=== PATIENT | female | born 1940 | race Caucasian/White ===

== ENCOUNTER → 2016-07-11 | Outpatient (CLI) | payer MEDICARE ==
[~2016-07-11] MED LIST: ASCO-96 PO; ASPI-614; ASPI-621 PO; ATEN50TA41; ATEN50TA41 PO; ATOR40TA; ATOR40TA78 PO; BIOF1TAB6 PO; CARB100T4 PO; CARB400T4; CARB400T4 PO; CHOL5000 PO; DIPH25CA61 PO; FOCUS FACTOR PO; GLUC1TAB9 PO; HYDR1POW19; HYDR1POW19 PO; HYDR25TA6 PO; KONSYL PO; LIPO FLAVONOID PLUS PO; LISI-170; LISI-467 PO; MAGN300C PO; MECL-76; MECL-76 PO; MECL25TA4 PO; MELA3TAB37 PO; META800T; META800T PO; NAPR500T PO; NAPR500T8; NITR0.4T; NITR0.4T PO; OMEG1CAP12 PO; OMEP-110; OMEP-110 PO; PREG100C PO; PREG75CA; PREG75CA PO; VIT1TABL32 PO; VIT1TABL46 PO; VITA400C14 PO; ZOLP10TA3; ZOLP10TA5 PO; [UNRECOGNIZED DRUG - OTHER] PO
== END | disposition home or self-care (01) ==
LOC: CFH 08:14
PROVIDERS: ATTEND Family Medicine
DX: G31.89 Other specified degenerative diseases of nervous system (principal)
CPT/HCPCS: 70450

== ENCOUNTER → 2016-07-22 | Outpatient (CLI) | payer MEDICARE | END | disposition home or self-care (01) | LOC: CARD 09:23 | PROVIDERS: ATTEND Family Medicine | DX: R55 Syncope and collapse (principal) | CPT/HCPCS: 93225; 93226 ==

== ENCOUNTER → 2016-11-27 | Outpatient (CLI) | payer MEDICARE ==
[~2016-11-27] MED LIST changes: -OMEG1CAP12 PO; +OMEG1CAP23 PO
[2016-11-27 12:56] LABS: BLOOD UREA NITROGEN 12 mg/dL (7-18)
[2016-11-27 12:59] LABS: ASPARTATE AMINO TRANSFERASE 22 U/L (15-37)
== END | disposition home or self-care (01) ==
LOC: CFH 08:21
PROVIDERS: ATTEND Internal Medicine Cardiovascular Disease
DX: I11.9 Hypertensive heart disease without heart failure (principal); I25.10 Atherosclerotic heart disease of native coronary artery without angina pectoris
CPT/HCPCS: 36415; 80053; 80061; 85027

== ENCOUNTER → 2017-06-16 | Outpatient (CLI) | payer MEDICARE ==
[~2017-06-16] MED LIST changes: -MELA3TAB37 PO; +MELA3TAB62 PO; +NAPR-856 PO; -NAPR500T PO
[2017-06-16 15:46] LABS: ANION GAP 9 mmol/L (5-15); CALCIUM 8.6 mg/dL (8.5-10.1); CHLORIDE 101 mmol/L (98-107)
[2017-06-16 16:12] LABS: C-REACTIVE PROTEIN, QUANT 0.03 mg/dL (0.02-0.49)
== END | disposition home or self-care (01) ==
LOC: CFH 10:36
PROVIDERS: ATTEND Psychiatry & Neurology Child & Adolescent Psychiatry
DX: G50.0 Trigeminal neuralgia (principal); M54.81 Occipital neuralgia; M31.6 Other giant cell arteritis; R41.89 Other symptoms and signs involving cognitive functions and awareness; E56.9 Vitamin deficiency, unspecified; Z79.899 Other long term (current) drug therapy
CPT/HCPCS: 36415; 80048; 82306; 82607; 84207; 84432; 85651; 86038; 86140; 86147; 86235; 86256; 86430; 86800

== ENCOUNTER → 2018-07-21 | Outpatient (CLI) | payer MEDICARE ==
[~2018-07-21] MED LIST changes: -ASPI-621 PO; +ASPI81TA45 PO
[2018-07-21 13:17] LABS: ALANINE AMINOTRANSFERASE 23 U/L (12-78); ALBUMIN 4.2 g/dL (3.4-5.0); ANION GAP 6 mmol/L (5-15); CALCIUM 8.9 mg/dL (8.5-10.1); CHLORIDE 106 mmol/L (98-107); CREATININE 0.74 mg/dL (0.55-1.02)
[2018-07-21 13:19] LABS: ALKALINE PHOSPHATASE 103 U/L (45-117); BILIRUBIN,TOTAL 1.1 mg/dL (0.2-1.0); TOTAL PROTEIN 7.2 g/dL (6.4-8.2)
== END | disposition home or self-care (01) ==
LOC: CFH 08:26
PROVIDERS: ATTEND Internal Medicine Cardiovascular Disease
DX: E78.00 Pure hypercholesterolemia, unspecified (principal); I25.10 Atherosclerotic heart disease of native coronary artery without angina pectoris; I65.23 Occlusion and stenosis of bilateral carotid arteries
CPT/HCPCS: 36415; 80053

== ENCOUNTER → 2018-07-30 | Outpatient (CLI) | payer MEDICARE ==
[2018-07-30 12:55] LABS: CHLORIDE 108 mmol/L (98-107)
[2018-07-30 13:10] LABS: ALANINE AMINOTRANSFERASE 31 U/L (12-78); ALBUMIN 4.1 g/dL (3.4-5.0); ALKALINE PHOSPHATASE 92 U/L (45-117); CALCIUM 8.9 mg/dL (8.5-10.1); CHOL/HDL RATIO 1.9; CHOLESTEROL, TOTAL 157 mg/dL (140-239); CREATININE 0.63 mg/dL (0.55-1.02); HDL CHOL % 54 % (28-40); HDL CHOLESTEROL (DIRECT) 84 mg/dL (40-60); LDL CHOLESTEROL,CALCULATED 58 mg/dL (54-169); LDL/HDL RATIO 0.7 (0.5-3.0); TOTAL PROTEIN 6.9 g/dL (6.4-8.2); TRIGLYCERIDES 77 mg/dL (50-200); VLDL CHOLESTEROL 15 mg/dL (0-25)
[2018-07-30 13:14] LABS: ANION GAP 6 mmol/L (5-15)
== END | disposition home or self-care (01) ==
LOC: CFH 08:02
PROVIDERS: ATTEND Family Medicine
DX: I25.708 Atherosclerosis of coronary artery bypass graft(s), unspecified, with other forms of angina pectoris (principal); I10 Essential (primary) hypertension
CPT/HCPCS: 36415; 80053; 80061

== ENCOUNTER → 2018-08-03 | Outpatient (CLI) | payer MEDICARE ==
[2018-08-03 15:14] LABS: HCT (SEDRATE) 38.9 % (34.6-47.8)
[2018-08-03 15:20] LABS: BASOPHILS # (AUTO) 0.02 x10^3/uL (0-0.1); BASOPHILS % (AUTO) 1 % (0-1); EOSINOPHILS # (AUTO) 0.15 x10^3/uL (0-0.4); EOSINOPHILS % (AUTO) 3 % (1-7); LYMPHOCYTES # (AUTO) 0.82 x10^3/uL (1-3.4); LYMPHOCYTES % (AUTO) 18 % (22-44); MD NO; MEAN CORPUSCULAR HEMOGLOBIN 32.7 pg (27.0-34.8); MEAN CORPUSCULAR HGB CONC 33.7 g/dL (32.4-35.8); MEAN PLATELET VOLUME 7.9 fL (7.4-10.4); MONOCYTES # (AUTO) 0.35 x10^3/uL (0.2-0.8); MONOCYTES % (AUTO) 8 % (2-9); NEUTROPHILS # (AUTO) 3.17 x10^3/uL (1.8-6.8); NEUTROPHILS % (AUTO) 70 % (42-75); PLATELET COUNT 215 x10^3/uL (130-400); RED BLOOD COUNT 4.08 x10^6/uL (3.82-5.3); RED CELL DISTRIBUTION WIDTH 13.1 % (9.6-15.2)
[2018-08-03 15:31] LABS: T4 (THYROXINE) 9.4 mcg/dL (4.8-13.9); THYROID STIMULATING HORMONE 1.25 mIU/L (0.358-3.740)
== END | disposition home or self-care (01) ==
LOC: CFH 08:02
PROVIDERS: ATTEND Psychiatry & Neurology Neurology
DX: M50.323 Other cervical disc degeneration at C6-C7 level (principal); H81.10 Benign paroxysmal vertigo, unspecified ear; R53.81 Other malaise
CPT/HCPCS: 36415; 70260; 72052; 84436; 84443; 84480; 84481; 85025; 85651; 86592

== ENCOUNTER 2018-11-27 16:28 | Inpatient (IN) | payer MEDICARE ==
[~2018-11-27] VITALS: Ht 160 cm; Wt 60.8 kg
[2018-12-01 12:01] VITALS: BP 150/74
== END 2018-12-01 12:50 | disposition home or self-care (01) | DRG 287 ==
LOC: ED 17:11 → OBSVTOIN 17:51 → EDIP 17:51 → INTOOBSV 17:51 → 5SO 18:17 → DCLOUNGE 12-01 12:15
PROVIDERS: ADMIT Internal Medicine; ATTEND Internal Medicine
PROC: 4A023N7 Measurement of Cardiac Sampling and Pressure, Left Heart, Percutaneous Approach (ICD-10-PCS; principal; 2018-11-30)
PROC: B2111ZZ Fluoroscopy of Multiple Coronary Arteries using Low Osmolar Contrast (ICD-10-PCS; 2018-11-30)
PROC: B2181ZZ Fluoroscopy of Left Internal Mammary Bypass Graft using Low Osmolar Contrast (ICD-10-PCS; 2018-11-30)
PROC: B2151ZZ Fluoroscopy of Left Heart using Low Osmolar Contrast (ICD-10-PCS; 2018-11-30)
PROC: B2171ZZ Fluoroscopy of Right Internal Mammary Bypass Graft using Low Osmolar Contrast (ICD-10-PCS; 2018-11-30)
PROC: B31P1ZZ Fluoroscopy of Thoraco-Abdominal Aorta using Low Osmolar Contrast (ICD-10-PCS; 2018-11-30)
PROC: B41F1ZZ Fluoroscopy of Right Lower Extremity Arteries using Low Osmolar Contrast (ICD-10-PCS; 2018-11-30)
PROC: B2131ZZ Fluoroscopy of Multiple Coronary Artery Bypass Grafts using Low Osmolar Contrast (ICD-10-PCS; 2018-11-30)
DX: I25.10 Atherosclerotic heart disease of native coronary artery without angina pectoris (principal); R07.89 Other chest pain; I08.0 Rheumatic disorders of both mitral and aortic valves; I11.9 Hypertensive heart disease without heart failure; M54.81 Occipital neuralgia; I25.82 Chronic total occlusion of coronary artery; G47.00 Insomnia, unspecified; F41.1 Generalized anxiety disorder; E78.5 Hyperlipidemia, unspecified; R73.01 Impaired fasting glucose; I73.9 Peripheral vascular disease, unspecified; Z91.013 Allergy to seafood; Z95.5 Presence of coronary angioplasty implant and graft; Z95.1 Presence of aortocoronary bypass graft; Z90.710 Acquired absence of both cervix and uterus; Z87.891 Personal history of nicotine dependence; Z82.49 Family history of ischemic heart disease and other diseases of the circulatory system
CPT/HCPCS: 36415; 71045; 78452; 80048; 80061; 82040; 83735; 83880; 84443; 84484; 85025; 93005; 93017; 93459; 93978; 99156; 99157; 99285; C1760; C1769; C1894; G0378; J0583; J1644; J2250; J2785; J3010; A9502; J0360; J1200; J2930; J7030; Q0163; Q9967

== ENCOUNTER 2018-12-02 14:48 | Emergency (ER) | payer MEDICARE ==
[~2018-12-02] VITALS: Ht 160 cm; Wt 59.8 kg
[2018-12-02 18:11] VITALS: BP 112/47
== END 2018-12-02 18:14 | disposition home or self-care (01) ==
LOC: ED 16:12
DX: I95.9 Hypotension, unspecified (principal); R07.9 Chest pain, unspecified; R42 Dizziness and giddiness; I10 Essential (primary) hypertension; I25.10 Atherosclerotic heart disease of native coronary artery without angina pectoris
CPT/HCPCS: 36415; 80053; 85025; 93005; 99284

== ENCOUNTER 2019-01-04 08:21 | Outpatient (CLI) | payer MEDICARE ==
[~2019-01-04 08:21] MED LIST changes: +ACID1TAB7 PO; +CARV12.5 PO; +ISOS30TA21 PO; -NITR0.4T; -NITR0.4T PO; +NITR0.4T41; +NITR0.4T41 PO; +TIZA4TAB2 PO; +TRAM50TA2 PO
[2019-01-04] MEDS ORDERED: CBD PO (09:12)
[2019-01-04] MEDS ORDERED: BIOT25005 PO (09:12)
[2019-01-04] MEDS ORDERED: GLUC1TAB21 PO (09:12)
[2019-01-04] MEDS ORDERED: POTA99TA8 PO (09:12)
[2019-01-04] MEDS ORDERED: AMLO2.5T5 PO (09:12)
[2019-01-04] MEDS ORDERED: TRAZ50TA66 PO (09:12)
[2019-01-04] MEDS ORDERED: CYAN50TA PO (09:12)
[2019-01-04] MEDS ORDERED: MULT-738 PO (09:12)
== END 2019-01-04 23:59 | disposition home or self-care (01) ==
LOC: CVU 08:21
PROVIDERS: ATTEND Nurse Practitioner Family
DX: I65.23 Occlusion and stenosis of bilateral carotid arteries (principal)
CPT/HCPCS: 93880

== ENCOUNTER → 2019-04-04 | Outpatient (CLI) | payer MEDICARE ==
[~2019-04-04] MED LIST changes: +AMLO2.5T5 PO; +BIOT25005 PO; +CBD PO; +CYAN50TA PO; +GLUC1TAB21 PO; +MULT-738 PO; +POTA99TA8 PO; +TRAZ50TA66 PO
[2019-04-04 12:53] LABS: BASOPHILS # (AUTO) 0.02 x10^3/uL (0-0.1); BASOPHILS % (AUTO) 0 % (0-1); EOSINOPHILS # (AUTO) 0.08 x10^3/uL (0-0.4); EOSINOPHILS % (AUTO) 2 % (1-7); LYMPHOCYTES % (AUTO) 24 % (22-44); MD NO; MEAN CORPUSCULAR HGB CONC 32.9 g/dL (32.4-35.8); MEAN CORPUSCULAR VOLUME 97.3 fL (80-100); MEAN PLATELET VOLUME 8.1 fL (7.4-10.4); MONOCYTES # (AUTO) 0.42 x10^3/uL (0.2-0.8); MONOCYTES % (AUTO) 9 % (2-9); NEUTROPHILS # (AUTO) 2.94 x10^3/uL (1.8-6.8); NEUTROPHILS % (AUTO) 65 % (42-75); PLATELET COUNT 213 x10^3/uL (130-400); RED BLOOD COUNT 4.05 x10^6/uL (3.82-5.3); RED CELL DISTRIBUTION WIDTH 12.5 % (9.6-15.2)
[2019-04-04 13:02] LABS: MICROSCOPIC AUTO
[2019-04-04 13:05] LABS: CULTURE INDICATED? NO
[2019-04-04 13:14] LABS: CHLORIDE 108 mmol/L (98-107)
[2019-04-04 13:22] LABS: ALANINE AMINOTRANSFERASE 37 U/L (12-78); ALBUMIN 3.7 g/dL (3.4-5.0); ALKALINE PHOSPHATASE 108 U/L (45-117); ANION GAP 5 mmol/L (5-15); BILIRUBIN,TOTAL 1.3 mg/dL (0.2-1.0); CALCIUM 8.7 mg/dL (8.5-10.1); CREATININE 0.66 mg/dL (0.55-1.02); TOTAL PROTEIN 6.9 g/dL (6.4-8.2)
== END | disposition home or self-care (01) ==
LOC: CFH 08:00
PROVIDERS: ATTEND Family Medicine
DX: K29.00 Acute gastritis without bleeding (principal)
CPT/HCPCS: 36415; 80053; 81001; 82150; 83690; 85025; 87338

== ENCOUNTER 2019-05-27 07:53 | Outpatient (CLI) | payer MEDICARE ==
[~2019-05-27 07:53] MED LIST changes: +MECL-101 PO; -MECL25TA4 PO
[2019-05-27 13:12] LABS: CREATININE 0.74 mg/dL (0.55-1.02)
== END 2019-05-27 23:59 | disposition home or self-care (01) ==
LOC: CFH 07:53
PROVIDERS: ATTEND Internal Medicine Gastroenterology
DX: I10 Essential (primary) hypertension (principal); I73.9 Peripheral vascular disease, unspecified; I25.10 Atherosclerotic heart disease of native coronary artery without angina pectoris; R55 Syncope and collapse
CPT/HCPCS: 36415; 82565; 84520

== ENCOUNTER → 2019-05-30 | Outpatient (CLI) | payer MEDICARE | END | disposition home or self-care (01) | LOC: CVU 07:22 | PROVIDERS: ATTEND Surgery | DX: I70.8 Atherosclerosis of other arteries (principal); I77.1 Stricture of artery; I10 Essential (primary) hypertension; E78.5 Hyperlipidemia, unspecified | CPT/HCPCS: 93922; 93925 ==

== ENCOUNTER → 2019-06-06 | Outpatient (CLI) | payer MEDICARE ==
[~2019-06-06] MED LIST changes: +OMNIPAQUE 350 MG/ML, 100ML BOTTLE ONE
== END | disposition home or self-care (01) ==
LOC: CFH 08:48
PROVIDERS: ATTEND Internal Medicine Gastroenterology
DX: R10.13 Epigastric pain (principal); I25.10 Atherosclerotic heart disease of native coronary artery without angina pectoris; I73.9 Peripheral vascular disease, unspecified; I10 Essential (primary) hypertension; R55 Syncope and collapse
CPT/HCPCS: 74170; Q9967

== ENCOUNTER → 2019-09-29 | Outpatient (CLI) | payer MEDICARE ==
[~2019-09-29] MED LIST changes: -OMNIPAQUE 350 MG/ML, 100ML BOTTLE ONE; +REGADENOSON 0.4 MG/5 ML SYRINGE ONE
== END | disposition home or self-care (01) ==
LOC: CFH 11:59
PROVIDERS: ATTEND Internal Medicine Cardiovascular Disease
DX: R55 Syncope and collapse (principal); R07.9 Chest pain, unspecified; I10 Essential (primary) hypertension
CPT/HCPCS: 78452; 93017; A9502; J2785

== ENCOUNTER → 2019-11-28 | Outpatient (CLI) | payer MEDICARE ==
[~2019-11-28] MED LIST changes: -REGADENOSON 0.4 MG/5 ML SYRINGE ONE
[2019-11-28 13:08] LABS: MEAN CORPUSCULAR HEMOGLOBIN 31.7 pg (27.0-34.8); MEAN CORPUSCULAR HGB CONC 32.6 g/dL (32.4-35.8); MEAN CORPUSCULAR VOLUME 97.4 fL (80-100); MEAN PLATELET VOLUME 7.9 fL (7.4-10.4); PLATELET COUNT 219 x10^3/uL (130-400); RED BLOOD COUNT 3.99 x10^6/uL (3.82-5.3); RED CELL DISTRIBUTION WIDTH 13.3 % (9.6-15.2)
[2019-11-28 17:07] LABS: CHLORIDE 108 mmol/L (98-107)
[2019-11-28 17:16] LABS: ALANINE AMINOTRANSFERASE 24 U/L (12-78); ALBUMIN 3.8 g/dL (3.4-5.0); ALKALINE PHOSPHATASE 99 U/L (45-117); ANION GAP 5 mmol/L (5-15); CALCIUM 8.9 mg/dL (8.5-10.1); CHOL/HDL RATIO 1.9; CHOLESTEROL, TOTAL 133 mg/dL (140-239); CREATININE 0.77 mg/dL (0.55-1.02); HDL CHOL % 53 % (28-40); HDL CHOLESTEROL (DIRECT) 70 mg/dL (40-60); LDL CHOLESTEROL,CALCULATED 51 mg/dL (54-169); LDL/HDL RATIO 0.7 (0.5-3.0); TOTAL PROTEIN 6.9 g/dL (6.4-8.2); TRIGLYCERIDES 62 mg/dL (50-200); VLDL CHOLESTEROL 12 mg/dL (0-25)
== END | disposition home or self-care (01) ==
LOC: CFH 07:12
PROVIDERS: ATTEND Internal Medicine Cardiovascular Disease
DX: E11.43 Type 2 diabetes mellitus with diabetic autonomic (poly)neuropathy (principal); E78.5 Hyperlipidemia, unspecified; I10 Essential (primary) hypertension; I70.0 Atherosclerosis of aorta
CPT/HCPCS: 36415; 80053; 80061; 83036; 85027

== ENCOUNTER → 2020-02-24 | Outpatient (CLI) | payer MEDICARE | END | disposition home or self-care (01) | LOC: CVU 07:35 | PROVIDERS: ATTEND Surgery | DX: I08.3 Combined rheumatic disorders of mitral, aortic and tricuspid valves (principal); I11.9 Hypertensive heart disease without heart failure; I25.10 Atherosclerotic heart disease of native coronary artery without angina pectoris; I70.203 Unspecified atherosclerosis of native arteries of extremities, bilateral legs; G50.0 Trigeminal neuralgia; Z95.1 Presence of aortocoronary bypass graft | CPT/HCPCS: 93306; 93922; 93925 ==

== ENCOUNTER 2020-12-04 10:05 | Outpatient (CLI) | payer MEDICARE ==
[2020-12-04] MEDS ORDERED: GADOTERATE 7.5 MMOL/15ML SYR ONE (15:23)
== END 2020-12-04 23:59 | disposition home or self-care (01) ==
LOC: RAD 10:05
PROVIDERS: ATTEND Psychiatry & Neurology Neurology
DX: R42 Dizziness and giddiness (principal); G50.0 Trigeminal neuralgia
CPT/HCPCS: 70553; A9575